=== PATIENT | male | born 1985 | race Hispanic/Latino ===

== ENCOUNTER 2023-05-13 23:00 | Emergency (ER) | payer SELFPAY ==
[~2023-05-13] VITALS: Ht 160 cm; Wt 80.0 kg
[2023-05-14] MEDS ORDERED: ULTRAM50 MG PO (00:04)
[2023-05-14 00:24] VITALS: BP 116/71
== END 2023-05-14 00:31 | disposition home or self-care (01) | DRG 563 ==
LOC: ED 23:00
DX: S83.92XA Sprain of unspecified site of left knee, initial encounter (principal); S83.91XA Sprain of unspecified site of right knee, initial encounter; M17.0 Bilateral primary osteoarthritis of knee; W01.0XXA Fall on same level from slipping, tripping and stumbling without subsequent striking against object, initial encounter; Y92.512 Supermarket, store or market as the place of occurrence of the external cause